=== PATIENT | male | born 1990 | race Caucasian/White ===

== ENCOUNTER 2025-05-30 11:25 | Emergency (ER) | payer MEDICAID, OTHER ==
[~2025-05-30] VITALS: Ht 180.3 cm; Wt 97.4 kg
[2025-05-30 12:11] VITALS: BP 132/106; PULSE 66; RESP 18; TEMP 98.2; O2SAT 98
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
--- NOTE | 2025-05-30 12:47 | DVH ---
XY R FOOT 3 VIEW XRAY, INDICATION: fall TECHNICAL DATA: Frontal, oblique and lateral views were obtained of the right foot. COMPARISON: None FINDINGS: No fracture is identified. Joint spaces are maintained. Alignment is anatomic. The hallux sesamoids appear normal. Soft tissues are within normal limits. IMPRESSION: No acute fracture or dislocation of the right foot.
--- NOTE | 2025-05-30 12:48 | DVH ---
XY R ANKLE 3 VIEW, INDICATION: fall TECHNICAL DATA:Frontal , oblique and lateral views were obtained of the right ankle. COMPARISON: XY R FOOT 3 VIEW XRAY on DOS: 05/30/25 FINDINGS: No fracture is identified. Joint spaces are maintained. Alignment is anatomic. Soft tissues are within normal limit. IMPRESSION: No acute fracture or dislocation of the right ankle.
== END 2025-05-30 14:30 | disposition home or self-care (01) ==
LOC: ER 11:25
DX: S93.401A Sprain of unspecified ligament of right ankle, initial encounter (principal); S93.601A Unspecified sprain of right foot, initial encounter; V86.56XA Driver of dirt bike or motor/cross bike injured in nontraffic accident, initial encounter; Y93.I9 Activity, other involving external motion; Y92.488 Other paved roadways as the place of occurrence of the external cause; Y99.8 Other external cause status
CPT/HCPCS: 73610; 73630